=== PATIENT | female | born 1995 | race Caucasian/White ===

== ENCOUNTER 2022-11-27 23:23 | Observation (INO) | payer SELFPAY ==
[~2022-11-27] VITALS: Ht 152.4 cm; Wt 82.1 kg
[2022-11-28] MEDS ORDERED: LACTATED RINGERS 1,000 ML IV ONE (00:15)
[2022-11-28] MEDS ORDERED: BLOOD SUGAR DIAGNOSTIC STRIP TEST ONE (00:15)
[2022-11-28] MEDS ORDERED: LACTATED RINGERS 1,000 ML IV SCH (00:15)
[2022-11-28] MEDS ORDERED: TERBUTALINE SULFATE 1MG/ML VIAL ONE (00:44)
[2022-11-28] MEDS ORDERED: TERBUTALINE SULFATE 1MG/ML VIAL SUBCUT PRN (00:45)
[2022-11-28] MEDS ORDERED: PNV1TABL59 MT (02:22)
[2022-11-28 03:40] LABS: CLARITY URINE CLOUDY (CLEAR); COLOR URINE YELLOW (YELLOW); SPECIFIC GRAVITY URINE 1.024 (1.005-1.030)
[2022-11-28 03:41] LABS: KETONES URINE 4+ (NEGATIVE); NITRITE URINE NEGATIVE (NEGATIVE); OCCULT BLOOD URINE NEGATIVE (NEGATIVE); PROTEIN URINE TRACE (NEGATIVE)
[2022-11-28 03:42] LABS: LEUKOCYTE ESTERASE URINE 2+ (NEGATIVE)
== END 2022-11-28 02:45 | disposition home or self-care (01) ==
LOC: 8 EST LDRP 23:23
PROVIDERS: ADMIT Obstetrics & Gynecology; ATTEND Obstetrics & Gynecology
DX: O26.893 Other specified pregnancy related conditions, third trimester (principal); R10.30 Lower abdominal pain, unspecified; Z3A.34 34 weeks gestation of pregnancy
CPT/HCPCS: 81003; 82731; 96360; 96361; 96372; G0378; J3105; 99281

== ENCOUNTER 2023-01-09 22:28 | Observation (INO) | payer MEDICAID ==
[~2023-01-09] VITALS: Ht 149.9 cm; Wt 75.3 kg
[~2023-01-09 22:28] MED LIST: PNV1TABL59 MT
== END 2023-01-10 01:10 | disposition home or self-care (01) ==
LOC: 8 EST LDRP 22:28
PROVIDERS: ADMIT Obstetrics & Gynecology; ATTEND Obstetrics & Gynecology
DX: O36.8130 Decreased fetal movements, third trimester, not applicable or unspecified (principal); O26.893 Other specified pregnancy related conditions, third trimester; R10.30 Lower abdominal pain, unspecified; O62.9 Abnormality of forces of labor, unspecified; Z3A.39 39 weeks gestation of pregnancy
CPT/HCPCS: 59025; 76818; 76805; G0378 ×2; 99281

== ENCOUNTER 2023-08-23 20:03 | Emergency (ER) | payer MEDICAID, MEDICARE ==
[~2023-08-23] VITALS: Ht 152.4 cm; Wt 73.0 kg
[2023-08-23 21:23] VITALS: O2SAT 100
[2023-08-23 21:43] LABS: BASOPHILS % 0.2 % (0.0-2.0); HEMATOCRIT. 36.8 % (36.0-48.0); HEMOGLOBIN. 12.2 g/dL (12.0-16.0); LYMPHOCYTES % 25.1 % (20.0-50.0); MEAN CORPUSCULAR HEMOGLOBIN 29.2 pg (28.0-32.0); MEAN CORPUSCULAR HGB CONC 33.1 g/dL (31.0-37.0); MEAN CORPUSCULAR VOLUME 88.3 fL (81.0-99.0); MEAN PLATELET VOLUME 8.8 fl (7.4-10.4); MONOCYTES % 5.3 % (2.0-8.0); NEUTROPHILS % 68.4 % (40.0-76.0); PLATELET 329 x1000/uL (130-400); RED BLOOD CELL COUNT 4.17 mill/uL (4.2-5.4); RED CELL DISTRIBUTION WIDTH 14.9 % (11.6-14.6); WHITE BLOOD COUNT 10.1 x1000/uL (4.5-11.0)
[2023-08-23 21:46] LABS: CLARITY URINE CLEAR (CLEAR); COLOR URINE YELLOW (YELLOW); GLUCOSE URINE NEGATIVE (NEGATIVE); KETONES URINE NEGATIVE (NEGATIVE); LEUKOCYTE ESTERASE URINE NEGATIVE (NEGATIVE); NITRITE URINE NEGATIVE (NEGATIVE); OCCULT BLOOD URINE NEGATIVE (NEGATIVE); PROTEIN URINE NEGATIVE (NEGATIVE); SPECIFIC GRAVITY URINE 1.012 (1.005-1.030); UROBILINOGEN URINE 0.2 E.U./dL (0.2-1.0)
[2023-08-23 21:57] LABS: ALANINE AMINOTRANSFERASE 12 IU/L (10-49); ALBUMIN 4.6 g/dL (3.2-4.8); ASPARTATE AMINOTRANSFERASE 15 IU/L (<34); BILIRUBIN TOTAL 0.4 mg/dL (0.1-1.0); CALCIUM 9.2 mg/dL (8.7-10.4); CARBON DIOXIDE 26 mEq/L (21-32); CHLORIDE 105 mEq/L (98-107); CREATININE 0.6 mg/dL (0.6-1.0); GLUCOSE 93 mg/dL (70-105); POTASSIUM 3.9 mEq/L (3.5-5.1); PROTEIN TOTAL 7.5 g/dL (6.0-8.3); SODIUM 139 mEq/L (136-145); UREA NITROGEN BLOOD 11 mg/dL (9-23)
[2023-08-23] MEDS: KETOROLAC 60MG/2ML VIAL IM ONE (23:52)
[2023-08-23] MEDS: ONDANSETRON 4MG ODT PO ONE (23:52)
[2023-08-24 01:47] VITALS: BP 129/68; PULSE 74; RESP 16; TEMP 98.1
== END 2023-08-24 01:49 | disposition home or self-care (01) ==
LOC: ER 20:03
DX: R10.84 Generalized abdominal pain (principal); Z90.49 Acquired absence of other specified parts of digestive tract
CPT/HCPCS: 99285; 74176; 80053; 81003; 81025; 83690; 85025; 36415; 96372; Q0162; J1885